=== PATIENT | male | born 1945 | race Caucasian/White ===

== ENCOUNTER 2022-04-10 07:40 | Day surgery (SDC) | payer OTHER ==
[2022-04-09 14:25] LABS: Absolute Lymphocytes (CBC) 2.2 K/uL (0.7-4.9); Hematocrit 30.7 % (39.6-49.0); Lymphocytes % 27.9 % (15.3-44.8); MCV 100.1 fL (80-100); MPV 11.8 fL (7.6-11.3); RBC Red Blood Cell Count 3.07 M/uL (4.33-5.43)
[2022-04-09 14:43] LABS: Potassium 4.1 mmol/L (3.5-5.1)
--- NOTE | 2022-04-10 07:51 | EKG ---
Test Date: 2022-04-09 Test Time: 14:04:34 Stripper Apprentice: ELIZABETH MEASUREMENT RESULTS: Intervals: Rate: 58 VT: 238 QRSD: 82 QT: 422 QTc: 414 [place]: P: 33 VT: 238 QRS: 44 T: 55 INTERPRETIVE STATEMENTS: Sinus bradycardia with 1st degree AV block Otherwise normal ECG No previous ECG available for comparison Electronically Signed On 04-10-22 07:50:53 [employer] SPECIALIST by Nicola Parks
[2022-04-10] MEDS ORDERED: NA CHLORIDE 0.9% 0 ML ONE (08:00)
[2022-04-10] MEDS ORDERED: CEFAZOLIN SODIUM 2 GM/VIAL ONE (08:00)
[2022-04-10] MEDS ORDERED: NA CHLORIDE 0.9% 500 ML ONE (08:06)
[2022-04-10] MEDS ORDERED: BUPIVACAINE 0.25% PF 30 ML VIAL ONE (08:43)
[2022-04-10] MEDS ORDERED: HEPARIN 500 UNIT/5 ML SYR IV ONE (08:46)
[2022-04-10] MEDS ORDERED: propofoL 200 MG/20 ML VIAL IV ONE (08:53)
[2022-04-10] MEDS ORDERED: ROCURONIUM 50 MG/5 ML VIAL IV ONE (08:53)
[2022-04-10] MEDS ORDERED: ONDANSETRON 4 MG/2 ML VIAL ONE (08:53)
[2022-04-10] MEDS ORDERED: LIDOCAINE 1% MPF 2 ML AMPULE ONE (08:53)
[2022-04-10] MEDS ORDERED: FENTANYL CITR 100 MCG/2 ML ONE (08:55)
[2022-04-10] MEDS ORDERED: NS 0.9% VIAL 20 ML ONE (09:26)
[2022-04-10] MEDS ORDERED: NEOSTIGMINE 1 MG/ML -10 ML VIAL ONE (10:06)
[2022-04-10] MEDS ORDERED: GLYCOPYRROLATE 0.2 MG/ML SYR ONE (10:06)
--- NOTE | 2022-04-10 10:08 | P.OP ---
Preoperative diagnosis: Need for Dialysis Postoperative diagnosis: Need for Dialysis Primary procedure: Laparoscopic Placement of Peritoneal Dialysis Catheter Anesthesia: GETA + Loca Estimated blood loss: <5cc Specimen: none Findings: 850cc returned of 1 liter infused Complications: None Implants: Hagen Double cuffed Peritoneal Catheter Transferred to: Recovery Room Condition: Good
[2022-04-10 10:26] VITALS: O2SAT 100
[2022-04-10] MEDS ORDERED: HYDROCODONE/APAP 7.5/325 MG TAB ONE (11:06)
--- NOTE | 2022-04-10 11:46 | OP ---
Date of Procedure: 04/10/2022 Surgeon: Mahesh Portillo MD, Preoperative Diagnosis: Need for dialysis. Postoperative Diagnosis: Need for dialysis. Procedure Performed: Laparoscopic placement of double-cuffed peritoneal dialysis catheter. Anesthesia: General endotracheal plus local with 0.25% Marcaine. Estimated Blood Loss: Less than 5 cc. Specimen: None. Findings: Approximately 850 cc of the 1 L infuse was returned. Complications: None. Implants: Merit double-cuffed peritoneal dialysis catheter. Disposition: The patient was transferred to the recovery room in good condition. Procedure In Detail: After informed consent was obtained, the patient was brought to the operating r oom, prepped and draped in the usual fashion after adequate anesthesia was achieved. The area of the left lower quadrant was anesthetized with 0.25% Marcaine. I had premarked the patient with a Merit template for the standard peritoneal dialysis catheter to the left midline at the patient's right peterson d. I then inserted a 5 mm 0-degree optical trocar in the abdomen without evidence of complication. Insufflation was obtained to 15 mmHg this time. There was no injury to vital structures upon entry i nto the abdomen. I then used the demarcated area, made an incision at the insertion site, inserted t he catheter, introducer at 45-degree angle toward the patient's coccyx area and sacrum. I then perfo rmed dilatation of the introducer sheath and then advanced the catheter with a midline coil keeping t he strap oriented in the posterior position. The catheter sat deep in the pelvis at this point. I t hen infused under pressure bag and the fluid went in quite easily. Approximately 1 L was infused. T he patient remained in neutral position during this point. I then desufflated the abdomen, reinflate d again, and checked position. The catheter was in good position at this point. I then tunneled the catheter out through the premarked access site and attached it to the infusion tubing once again and drained the fluid. At this point, approximately 850 cc of fluid was in the bag, some additional was in the tubing, but approximately 850 cc of the 1 L was infused getting somewhere between 85% and 90% fluid returned. At this point, I injected the 2 cc of heparinized saline into the catheter and desu fflated the abdomen at this point. The cap was placed on the catheter at this point and I irrigated all skin incisions copiously and closed with a 4-0 Monocryl in a running fashion. Dermabond placed o lesa top. The patient tolerated the procedure well without evidence of complication and transferred t o PACU in good condition. All counts were correct at the end of the case. BRENNA/SAMRA Voice ID: [id number] Report ID: [id number]
[2022-04-10 13:12] VITALS: BP 114/49; TEMP 97
== END 2022-04-10 11:55 | disposition home or self-care (01) ==
LOC: OR 07:40
PROVIDERS: ATTEND Surgery
PROC: 0WHG43Z Insertion of Infusion Device into Peritoneal Cavity, Percutaneous Endoscopic Approach (ICD-10-PCS; principal; 2022-04-10 09:15)
DX: N18.6 End stage renal disease (principal); Z99.2 Dependence on renal dialysis; I10 Essential (primary) hypertension
CPT/HCPCS: 93005; 85025; 80048; 36415; 82947 ×2; 49324; J2704; J2710; J3010; A4216; J1642; J7040; J2405; J7030